=== PATIENT | male | born 1995 | race Caucasian/White ===

== ENCOUNTER 2018-01-19 05:16 | Emergency (ER) | payer OTHER ==
[~2018-01-19] VITALS: Ht 165.1 cm; Wt 63.7 kg
[2018-01-19 05:20] VITALS: TEMP 36.8; Ht 165.1 cm; Wt 63.7 kg
[2018-01-19] MEDS ORDERED: LORAZEPAM 1 MG TAB SL STA (05:33)
--- NOTE | 2018-01-19 05:44 | EMERGENCY ROOM VISIT NOTE ---
History Report prepared by Steven: Nurys Jamison Under the Supervision of: Dr. Franco Bean M.D. First contact with patient: 05:21 Chief Complaint: OTHER COMPLAINT Stated Complaint: ANXIETY History of Present Illness The patient is a 22 year old male who presents to the Emergency Room with complaints of an episode of an anxiety attack that occurred just prior to arrival. The patient reported that he is in [place] visiting his friends for the weekend. He states that he was out with his friends today when he suddenly could not find them. The patient then returned back to the car to find it missing. He then states that he started feeling very anxious. He also notes that he had been consuming some alcohol. The patient denies any homicidal or suicidal ideations. He also reports that he takes Advil occasionally for headaches and that he used to take medication for ADHD. Source of History: patient Onset: just prior to arrival Position: head Quality: other (anxious) Timing: other (episode) Associated Symptoms: No vomiting Note: Denies: homicidal or suicidal ideations Review of Systems See HPI for pertinent positives & negatives. A total of 10 systems reviewed and were otherwise negative. Past Medical & Surgical Medical Problems: (1) ADHD Family History No pertinent family history Social History Smoking Status: Current Some Day Smoker Alcohol Use: occasionally Drug Use: marijuana Current/Historical Medications No Active Prescriptions or Reported Meds Allergies Coded Allergies: No Known Allergies (Unverified , 01/19/18) Physical Exam Vital Signs Date Time Temp Pulse Resp B/P (MAP) Pulse Ox O2 Delivery O2 Flow Rate FiO2 01/19/18 10:40 80 18 119/59 96 Room Air 01/19/18 08:45 61 14 90/43 98 Room Air 01/19/18 07:20 105 14 105/59 98 Room Air 01/19/18 05:20 36.8 92 18 106/67 95 Room Air Physical Exam GENERAL: Awake, alert, well-appearing, in no acute distress HENT: Normocephalic, atraumatic. Oropharynx unremarkable. EYES: Normal conjunctiva. Sclera non-icteric. NECK: Supple. No nuchal rigidity. FROM. No JVD. RESPIRATORY: Clear to auscultation. CARDIAC: Regular rate, normal rhythm. Extremities warm and well perfused. Pulses equal. ABDOMEN: Soft, non-distended. No tenderness to palpation. No rebound or guarding. No masses. RECTAL: Deferred. MUSCULOSKELETAL: Chest examination reveals no tenderness. The back is symmetrical on inspection without obvious abnormality. There is no CVA tenderness to palpation. No joint edema. LOWER EXTREMITIES: Calves are equal size bilaterally and non-tender. No edema. No discoloration. NEURO: Normal sensorium. No sensory or motor deficits noted. SKIN: No rash or jaundice noted. Medical Decision & Procedures Laboratory Results 01/19/18 05:30 Test 01/19/18 05:30 Anion Gap 7.0 mmol/L (3-11) Est Creatinine Clear Calc Drug Dose 86.9 ml/min Estimated GFR () 102.3 Estimated GFR (Non- 88.3 BUN/Creatinine Ratio 11.1 (10-20) Calcium Level 8.5 mg/dl (8.5-10.1) Ethyl Alcohol mg/dL 49.0 mg/dl (0-3) Labs reviewed by ED physician. Medications Administered Medications (Trade) Dose Ordered Sig/Mj Route Start Time Stop Time Status Last Admin Dose Admin Lorazepam (Ativan Tab) 1 mg NOW STAT SL 01/19/18 05:33 01/19/18 05:35 DC 01/19/18 05:33 1 MG ED Course 0533: Past medical records reviewed. The patient was evaluated in room A7. A complete history and physical examination was performed. 0630: Upon reexamination the patient is resting. I discussed results and treatment plan with the patient. He verbalizes agreement and understanding. The patient is ready for discharge. Medical Decision Etiologies such as mood disorder, infection, hypoglycemia, electrolyte abnormalities, cardiac sources, intracerebral event, toxicologic, neurologic, as well as others were entertained. This is a 22-year-old male who was sent to the emergency department because he was unable to find his car. The patient arrives to the emergency department during a period of high volume and high acuity during single provider coverage. Patient denies being suicidal or homicidal. He is asking something for an anxiety attack therefore he was given 1 mg of Ativan here in the emergency department. I do believe that this patient can be safely discharged home as he has no medical complaints. I did discuss the case with case management who will work on finding the patient a ride home. Medication Reconcilliation Current Medication List: was personally reviewed by me Blood Pressure Screening Patient's blood pressure: Normal blood pressure Impression Primary Impression: Assistance needed with transportation Scribe Attestation The scribe's documentation has been prepared under my direction and personally reviewed by me in its entirety. I confirm that the note above accurately reflects all work, treatment, procedures, and medical decision making performed by me. Departure Information Dispostion Home / Self-Care Prescriptions No Active Prescriptions or Reported Meds Forms HOME CARE DOCUMENTATION FORM, IMPORTANT VISIT INFORMATION, WORK / SCHOOL INSTRUCTIONS Patient Instructions My [facility] Additional Instructions You have been examined and treated today on an emergency basis only. This is not a substitute for, or an effort to provide, complete comprehensive medical care. It is impossible to recognize and treat all injuries or illnesses in a single emergency department visit. It is therefore important that you follow up closely with your PCP. Call as soon as possible for an appointment. Thank you for your time and consideration. I look forward to speaking with you again soon. Please don't hesitate to call us if you have any questions.
[2018-01-19 06:03] LABS: CALCIUM 8.5 mg/dl (8.5-10.1); CREATININE 1.18 mg/dl (0.60-1.40); POTASSIUM 3.7 mmol/L (3.5-5.1)
[2018-01-19 10:40] VITALS: BP 119/59; PULSE 80; O2SAT 96
== END 2018-01-19 11:01 | disposition home or self-care (01) ==
LOC: C.EDA 05:20
DX: Z60.8 Other problems related to social environment (principal); F17.200 Nicotine dependence, unspecified, uncomplicated; F12.90 Cannabis use, unspecified, uncomplicated